=== PATIENT | male | born 1995 | race Two or more races ===

== ENCOUNTER 2024-06-20 17:36 | Emergency (ER) | payer MEDICAID, OTHER ==
[~2024-06-20] VITALS: Ht 177.8 cm; Wt 109.1 kg
--- NOTE | 2024-06-20 18:12 | ED.PDOC ---
Musculoskeletal HPI Comments HPI: Poor Historian. 28-year-old male presents to emergency department for left shoulder pain status post mechanical fall from a standing position. Denies any associated head or neck injury or any other trauma. Denies any loss of consciousness. Past Medical History: Past Surgical History: REVIEW OF SYSTEMS: CONSTITUTIONAL: Denies acute: fever, diaphoresis, chills, generalized weakness. HEAD: Denies acute: headache, photophobia Eyes: Denies acute: Double vision, vision loss, eye pain, eye discharge. EARS: Denies acute: tinnitus, hearing loss, ear discharge, ear pain, THROAT: Denies acute: sore throat, swelling, difficulty swallowing , pain with swallowing, change in voice. NECK: Denies acute: neck pain, neck swelling, stiff neck. HEART: Denies acute : chest pain, palpitations, LUNGS: Denies acute: SOB, wheezing, cough, hemoptysis ABDOMEN: Denies acute: abdominal pain, Nausea, Vomiting, diarrhea, melena , hematemesis, hematochezia SKIN: Denies acute: rash, redness, lesions, itchiness. EXTREMITIES: Denies acute: calf pain, numbness, tingling, weakness, Denies acute: Low back pain. Neuro: Denies acute: focal neurological deficit, motor or sensory focal neurological deficit, tremors, seizure like activity, confusion, dizziness, change in mental status, loss of bowel or bladder function, cauda equina like symptoms. : Denies acute: dysuria, hematuria, flank pain, increase in urinary frequency. PSYCH: Denies acute: hallucination, suicidal ideation, homicidal ideation. PHYSICAL EXAM: General: Ehdp-tf-[id number] acute distress, awake and alert. Head: normocephalic, atraumatic. Neck: supple, trachea is midline, no swelling. Throat: Normal phonation. Eyes:, no erythema, no purulent discharge, no proptosis, no icterus. Heart: regular rate, regular rhythm, no significant murmur appreciated. Lungs: no apparent respiratory distress, Able to speak in full sentences. No wheezing, no rhonchi, no crackles. No stridors Clear to auscultation bilaterally. Abdomen: non tender to palpation, non distended, soft, no guarding, no rebound, + bowel sounds. Neuro: Awake, Alert, oriented to name, self, situation, follows commands GCS=15. Speech is normal. Skin: no petechia, no purpura, no cyanosis, non-pale, not jaundice. Lower extremities: --no - Pitting edema no deformity, no focal swelling, no calf TTP. Makes eye contact. moves all four extremities. Face: no apparent facial droop. Ambulating in the ED independently. Evaluation of the area of pain. Left shoulder appears to be dislocated. Decreased range of motion secondary to pain. Radial pulses palpable. Sensation and motor are present distally. Able to have a good wellness health coach muscle. ED COURSE: Chief Complaint: Upper Extremity Time Seen by MD: 17:48 Reviewed Notes: Nurses Notes, Medications, Allergies Allergies: Coded Allergies: NO KNOWN ALLERGIES (Unverified , 06/20/24) Information Source: Patient Mode of Arrival: Ambulatory Location: Left Was a procedure done? Was a procedure done?: Yes Sedation Sedation?: No Informed consent obtained: Yes Reduction Indication: Dislocation Sedation: Consents obtained Intra-articular anesthetic callum: No Post-reduction x-ray show: Reduction, Good Alignment Differential Diagnosis EXT Differential Diagnosis: Deep Vein Thrombosis, Compartment Syndrome, Fracture, Sprain, Dislocation, Laceration, Gout, Contusion, Strain, Septic, Neurovascular injury, Bursitis X-Ray, Labs, Meds, VS Vital Signs Date Time Temp Pulse Resp B/P (MAP) Pulse Ox O2 Delivery O2 Flow Rate FiO2 06/20/24 18:47 139/97 06/20/24 18:34 85 06/20/24 18:20 98 15 98 Room Air* 0 21 06/20/24 18:17 98.8 98 15 139/97 (111) 98 98.8 06/20/24 17:50 99.8 113 20 144/110 (121) 98 99.8 Lab Test 06/20/24 18:38 Range/Units White Blood Count 10.7 4.4-10.8 10^3/uL Red Blood Count 5.33 4.5-5.90 10^6/uL Hemoglobin 15.9 13.5-17.5 g/dL Hematocrit 46.3 41.0-53.0 % Mean Corpuscular Volume 86.7 80.0-100.0 fL Mean Corpuscular Hemoglobin 29.8 28.0-32.0 pg Mean Corpuscular Hemoglobin Concent 34.4 32.0-36.0 g/dL Red Cell Distribution Width 13.9 11.8-14.3 % Platelet Count 297 140-450 10^3/uL Mean Platelet Volume 8.5 6.9-10.8 fL Neutrophils (%) (Auto) 71.3 37.0-80.0 % Lymphocytes (%) (Auto) 18.4 10.0-50.0 % Monocytes (%) (Auto) 7.5 0.0-12.0 % Eosinophils (%) (Auto) 2.1 0.0-7.0 % Basophils (%) (Auto) 0.7 0.0-2.0 % Neutrophils # (Auto) 7.6 1.6-8.6 10 ^3/uL Lymphocytes # (Auto) 2.0 0.4-5.4 10 ^3/uL Monocytes # (Auto) 0.8 0-1.3 10 ^3/uL Eosinophils # (Auto) 0.2 0-0.8 10 ^3/uL Basophils # (Auto) 0.1 0-0.2 10 ^3/uL Nucleated Red Blood Cells 0.1 % Sodium Level 140 136-145 mmol/L Potassium Level 3.3 L 3.5-5.1 mmol/L Chloride Level 106 98-107 mmol/L Carbon Dioxide Level 21 20-31 mmol/L Anion Gap 13 5-15 Blood Urea Nitrogen 10 9-23 mg/dL Creatinine 1.03 0.700-1.30 mg/dL Glomerular Filtration Rate Calc 101 >90 mL/min BUN/Creatinine Ratio 9.7 L 10.0-20.0 Serum Glucose 122 H 74-106 mg/dL Calcium Level 9.9 8.7-10.4 mg/dL Total Bilirubin 0.4 0.2-1.0 mg/dL Aspartate Amino Transferase (AST) 21 13-40 U/L Alanine Aminotransferase (ALT) 36 7-40 U/L Alkaline Phosphatase 156 H 46-116 U/L Total Protein 7.4 5.7-8.2 g/dL Albumin 5.0 H 3.2-4.8 g/dL Current Medications Medications (Trade) Dose Ordered Sig/Christal Route Start Time Stop Time Status Last Admin Fentanyl Citrate 100 mcg ONCE ONCE IV 06/20/24 18:45 06/20/24 18:46 DC 06/20/24 18:47 [place] [id number] Ph: [phone] DIAGNOSTIC IMAGING Diagnostic Imaging Report : [id number] Signed PATIENT: OSCAR DIAZ ACCT: [id number] UNIT: [id number] : 1995 LOC: ER ROOM / BED: / AGE / SEX: 28 / M ADM STATUS: REG ER SERVICE 1901 ORDERING PHYSICIAN: KOFI BATES DO PROCEDURE(s): LSHD - L SHOULDER 1V XRAY REASON: Post reduction ORDER NUMBER(s): [id number], ACCESSION NUMBER(s): [id number] CLINICAL INDICATION: Post reduction TECHNIQUE: 2 radiographic views of the left shoulder were obtained. Comparison: XY L SHOULDER 1V XRAY on DOS: 06/20/24 FINDINGS/IMPRESSION: Bony alignment is normal there appears to be a fracture of the greater tuberosity of the proximal left humerus which may be secondary to hill-Sachs deformity. The visualized joint space is well maintained. The alignment is anatomical. There is no radiopaque foreign body. ATED BY: OSCAR SANCHEZ Jr., DO DICTATED DATE/TIME: 06/20/241934 SIGNED BY: OSCAR SANCHEZ Jr., SIGNED DATE/TIME: 06/20/241934 CC: [place] [id number] Ph: [phone] DIAGNOSTIC IMAGING Diagnostic Imaging Report : [id number] Signed PATIENT: OSCAR DIAZ ACCT: [id number] UNIT: [id number] : 1995 LOC: ER ROOM / BED: / AGE / SEX: 28 / M ADM STATUS: REG ER SERVICE [id number] ORDERING PHYSICIAN: KOFI BATES DO PROCEDURE(s): LSHD - L SHOULDER 1V XRAY REASON: fall ORDER NUMBER(s): [id number], ACCESSION NUMBER(s): [id number] EXAM: XY L SHOULDER 1V XRAY CLINICAL INDICATION: fall TECHNIQUE: XY L SHOULDER 1V XRAY Comparison: None FINDINGS/IMPRESSION: Anterior/inferior dislocation of the left humeral head. ATED BY: SHANICE KIM MD DICTATED DATE/TIME: 06/20/241833 SIGNED BY: SHANICE KIM MD SIGNED DATE/TIME: 06/20/241833 CC: Time of 1ST Reevaluation: 18:57 (Patient received fentanyl 100 mics IV. Left shoulder dislocation reduction was performed by myself at bedside. Patient tolerated the procedure well. Complications none apparent. Patient was placed in a shoulder sling and postreduction x-ray will be obtained.) Reevaluation 1ST: Resolved Patient Education/Counseling: Diagnosis, Treatment Family Education/Counseling: No Family Present Comments Patient presented with the above HPI.--left shoulder injury----workup was initiated. patient was found with the above mentioned diagnosis. the following medications were ordered: please refer to order lists of meds and tests obtained by myself Dr. Bates. Patient ED course and VS have been stabilized. Patient has been reassessed in the ED and remained in a stable condition. Pertinent incidental findings were discussed with the patient and/or family. Patient/family voices understanding and is agreeable with plan. Patient has been observed in the ED adequate length of time to insure improvement/stability. Escalation of care considered: Consideration of escalation to observation or admission Successful dislocation reduction of the left shoulder was performed. Patient was DISCHARGED home in a stable condition. All the reports of any imaging studies that were ordered by myself were reviewed by myself. Departure 1 Departure Time of Disposition: 18:57 Impression: Primary Impression: Dislocation of left shoulder joint Qualified Codes: S43.005A - Unspecified dislocation of left shoulder joint, initial encounter Additional Impressions: Hill Sachs deformity, left Humeral head fracture Qualified Codes: S42.292A - Other displaced fracture of upper end of left humerus, initial encounter for closed fracture Disposition: 01 HOME / SELF CARE / HOMELESS Condition: Stable Additional Instructions: Additional discharge instructions: You MUST follow-up with your primary care/family doctor in 1 to 2 days. If you are unable to see your primary care/family doctor, please return to our emergency room for re-assessment and re-evaluation in 1 to 2 days. Return to the emergency room here in our facility or to the nearest ER [facility] if your symptoms change or worsen. CONSULTATIONS: you MUST Follow-up for consultation as soon as possible with: orthopedic doctor in 1-2 days. Please call for appointment. You MUST call the consultants office yourself to make an appointment. You may need to arrange that through your insurance and/or your primary/family doctor. If you are unable to see the financial sales consultant in 1 to 2 days, you must return to our emergency room (or any other ER of your choice) for re-assessment and re- evaluation. Adequate fluid hydration. Below is a copy of your radiological report for follow up: [place] [id number] Ph: [phone] DIAGNOSTIC IMAGING Diagnostic Imaging Report : [id number] Signed PATIENT: OSCAR DIAZ ACCT: [id number] UNIT: [id number] : 1995 LOC: ER ROOM / BED: / AGE / SEX: 28 / M ADM STATUS: REG ER SERVICE 47 ORDERING PHYSICIAN: KOFI BATES DO PROCEDURE(s): LSHD - L SHOULDER 1V XRAY REASON: fall ORDER NUMBER(s): [id number], ACCESSION NUMBER(s): [id number] EXAM: XY L SHOULDER 1V XRAY CLINICAL INDICATION: fall TECHNIQUE: XY L SHOULDER 1V XRAY Comparison: None FINDINGS/IMPRESSION: Anterior/inferior dislocation of the left humeral head. ATED BY: SHANICE KIM MD DICTATED DATE/TIME: 06/20/241833 SIGNED BY: SHANICE KIM MD SIGNED DATE/TIME: 06/20/241833 CC: [place] [id number] Ph: [phone] DIAGNOSTIC IMAGING Diagnostic Imaging Report : [id number] Signed PATIENT: OSCAR DIAZ ACCT: [id number] UNIT: [id number] : 1995 LOC: ER ROOM / BED: / AGE / SEX: 28 / M ADM STATUS: REG ER SERVICE 00 ORDERING PHYSICIAN: KOFI BATES DO PROCEDURE(s): LSHD - L SHOULDER 1V XRAY REASON: Post reduction ORDER NUMBER(s): [id number], ACCESSION NUMBER(s): [id number] CLINICAL INDICATION: Post reduction TECHNIQUE: 2 radiographic views of the left shoulder were obtained. Comparison: XY L SHOULDER 1V XRAY on DOS: 06/20/24 FINDINGS/IMPRESSION: Bony alignment is normal there appears to be a fracture of the greater tuberosity of the proximal left humerus which may be secondary to hill-Sachs deformity. The visualized joint space is well maintained. The alignment is anatomical. There is no radiopaque foreign body. ATED BY: OSCAR SANCHEZ Jr., DO DICTATED DATE/TIME: 06/20/241934 SIGNED BY: OSCAR SANCHEZ Jr., SIGNED DATE/TIME: 06/20/241934 CC: Discharged With: Self Critical Care Note Critical Care Time?: Yes (35 min-critical care time only) KOFI BATES DO Jun 20, 2024 18:11
[2024-06-20 18:20] VITALS: PULSE 98; RESP 15; O2SAT 98
--- NOTE | 2024-06-20 18:36 | DVH ---
EXAM: XY L SHOULDER 1V XRAY CLINICAL INDICATION: fall TECHNIQUE: XY L SHOULDER 1V XRAY Comparison: None FINDINGS/IMPRESSION: Anterior/inferior dislocation of the left humeral head.
[2024-06-20] MEDS: fentaNYL CITRATE 100 MCG/2 ML VL IV ONE (18:47)
[2024-06-20 18:59] LABS: Basophils # (auto) 0.1 10 ^3/uL (0-0.2); Basophils % (auto) 0.7 % (0.0-2.0); Eosinophils # (auto) 0.2 10 ^3/uL (0-0.8); Eosinophils % (auto) 2.1 % (0.0-7.0); Hematocrit 46.3 % (41.0-53.0); Hemoglobin 15.9 g/dL (13.5-17.5); Lymphocytes % (auto) 18.4 % (10.0-50.0); Mean Corpuscular Hemoglobin 29.8 pg (28.0-32.0); Mean Corpuscular Hgb Conc. 34.4 g/dL (32.0-36.0); Mean Corpuscular Volume 86.7 fL (80.0-100.0); Monocytes # (auto) 0.8 10 ^3/uL (0-1.3); Monocytes % (auto) 7.5 % (0.0-12.0); Neutrophils # (auto) 7.6 10 ^3/uL (1.6-8.6); Neutrophils % (auto) 71.3 % (37.0-80.0); Nucleated Red Blood Cells % 0.1 %; Platelet Count (auto) 297 10^3/uL (140-450); Red Blood Cells 5.33 10^6/uL (4.5-5.90); Red Cell Distribution Width 13.9 % (11.8-14.3); White Blood Cell 10.7 10^3/uL (4.4-10.8)
[2024-06-20 19:15] LABS: Alanine Aminotransferase 36 U/L (7-40); Anion Gap 13 (5-15); Aspartate Aminotransferase 21 U/L (13-40); BUN/Creatinine Ratio 9.7 (10.0-20.0); Blood Urea Nitrogen 10 mg/dL (9-23); Calcium 9.9 mg/dL (8.7-10.4); Carbon Dioxide 21 mmol/L (20-31); Chloride 106 mmol/L (98-107); Sodium 140 mmol/L (136-145); Total Protein 7.4 g/dL (5.7-8.2)
[2024-06-20 19:16] LABS: Bilirubin, Total 0.4 mg/dL (0.2-1.0)
[2024-06-20 19:35] VITALS: BP 139/97; PULSE 98; RESP 15; TEMP 98.8; O2SAT 98
[2024-06-20 19:35] LABS: Alkaline Phosphatase 156 U/L (46-116); Glucose 122 mg/dL (74-106); Potassium 3.3 mmol/L (3.5-5.1)
--- NOTE | 2024-06-20 19:37 | DVH ---
CLINICAL INDICATION: Post reduction TECHNIQUE: 2 radiographic views of the left shoulder were obtained. Comparison: XY L SHOULDER 1V XRAY on DOS: 06/20/24 FINDINGS/IMPRESSION: Bony alignment is normal there appears to be a fracture of the greater tuberosity of the proximal lef t humerus which may be secondary to hill-Sachs deformity. The visualized joint space is well maintained. The alignment is anatomical. There is no radiopaque foreign body.
[2024-06-20] MEDS: SODIUM CHLORIDE 0.9% 1,000 ML IV ONE (19:59)
== END 2024-06-20 19:41 | disposition home or self-care (01) ==
LOC: ER 17:36
DX: S43.035A Inferior dislocation of left humerus, initial encounter (principal); W19.XXXA Unspecified fall, initial encounter; Y93.89 Activity, other specified; Y92.89 Other specified places as the place of occurrence of the external cause; Y99.8 Other external cause status
CPT/HCPCS: 23650; 36415; 73020; 80053; 85025; 96374; 99284; J3010

== ENCOUNTER 2025-03-06 14:49 | Inpatient (IN) | payer MEDICAID ==
[~2025-03-06] VITALS: Ht 177.8 cm; Wt 106.9 kg
--- NOTE | 2025-03-06 15:10 | ED.PDOC ---
History of Present Illness HPI Comments 29 y/o M, presents to the ED for CC of headache. Patient states, he has been experiencing a pressure like headache with associated high blood pressure x1day. Upon arrival to the ED, patient is hypertensive with a blood pressure of 199/122mmHg. Patient denies nausea, vomiting, dizziness, or blurred vision. Chief Complaint: Headache Time Seen by MD: 15:00 Reviewed Notes: Nurses Notes, Medications, Allergies Allergies: Coded Allergies: NO KNOWN ALLERGIES (Unverified , 06/20/24) Information Source: Patient Mode of Arrival: Ambulatory Severity: Moderate Timing: Days Duration: Since onset Prehospital treatment: None Past Medical History PAST MEDICAL HISTORY: Denies Surgical History: Denies all surgeries Social History Smoker: Non-Smoker Alcohol: Denies ETOH Use Drugs: Denies Drug Use Lives In: Home Constitutional: denies: chills, diaphoresis, fatigue, fever, malaise, sweats, weakness, others EENTM: denies: blurred vision, double vision, ear bleeding, ear discharge, ear drainage, ear pain, ear ringing, eye pain, eye redness, hearing loss, mouth pain, mouth swelling, nasal discharge, nose bleeding, nose congestion, nose pain, photophobia, tearing, throat pain, throat swelling, voice changes, others Respiratory: denies: cough, hemoptysis, orthopnea, SOB at rest, shortness of breath, SOB with excertion, stridor, wheezing, others Cardiovascular: denies: chest pain, dizzy spells, diaphoresis, Dyspnea on exertion, edema, irregular heart beat, left arm pain, lightheadedness, palpitations, PND, syncope, others Gastrointestinal: denies: abdomen distended, abdominal pain, blood streaked bowels, constipated, diarrhea, dysphagia, difficulty swallowing, hematemesis, melena, nausea, poor appetite, poor fluid intake, rectal bleeding, rectal pain, vomiting, others Genitourinary: denies: burning, dysuria, flank pain, frequency, hematuria, incontinence, penile discharge, penile sore, pain, testicle pain, testicle swelling, urgency, others Neurological: reports: headache, numbness (facial); denies: dizziness, fainting, left sided numbness, left sided weakness, paresthesia, pre-existing deficit, right sided numbness, right sided weakness, seizure, speech problems, tingling, tremors, weakness, others Musculoskeletal: denies: back pain, gout, joint pain, joint swelling, muscle pain, muscle stiffness, neck pain, others Integumetry: denies: bruises, change in color, change in hair/nails, dryness, laceration, lesions, lumps, rash, wounds, others Allergic/Immunocompromised: denies: Difficulty Healing, Frequent Infections, Hives, Itching, others Hematologic/Lymphatic: denies: anemia, blood clots, easy bleeding, easy bruising, swollen glands, others Endocrine: denies: excessive hunger, excessive sweating, excessive thirst, excessive urination, flushing, intolerance to cold, intolerance to heat, unexplained weight gain, unexplained weight loss, others Psychiatric: denies: anxiety, bipolar disorder, depression, hopeless, panic disorder, schizophrenia, sleepless, suicidal, others All Other Systems: Reviewed and Negative Physical Exam General Appearance: No Apparent Distress, Normal HEENT: Normal ENT Inspection, Pharynx Normal Neck: Full Range of Motion, Non-Tender, Normal, Normal Inspection Respiratory: Chest Non-Tender, Lungs Clear, No Accessory Muscle Use, No Respiratory Distress, Normal Breath Sounds Cardiovascular: No Edema, No Murmur, No Gallop, Normal Peripheral Pulses, Regular Rate/Rhythm Breast Exam: Deferred Gastrointestinal: No Organomegaly, Non Tender, No Pulsatile Mass, Normal Bowel Sounds, Soft Genitalia: Deferred Pelvic: Deferred Rectal: Deferred Extremities: No calf tenderness, Normal capillary refill, Normal inspection, Normal range of motion, Non-tender, No pedal edema Musculoskeletal : Apperance: Normal Neurologic: Alert, correctional program specialist II-XII nml as Tested, No Motor Deficits, Normal Affect, Normal Mood, No Sensory Deficits Cerebellar Function: Normal Reflexes: Normal Skin: Dry, Normal Color, Warm Lymphatic: No Adenopathy Was a procedure done? Was a procedure done?: No Differential Dx Considerations may include: hypertensive crisis, hypertensive urgency, dehydration, electrolyte imbalance, migraine headache X-Ray, Labs, Meds, VS Vital Signs Date Time Temp Pulse Resp B/P (MAP) Pulse Ox O2 Delivery O2 Flow Rate FiO2 03/06/25 16:01 143/88 03/06/25 15:57 99 Room Air* 0 21 03/06/25 15:56 98.1 75 18 143/97 (112) 98 98.1 03/06/25 14:57 88 03/06/25 14:51 97.8 97 18 199/122 97 97.8 Lab Test 03/06/25 15:47 03/06/25 15:08 03/06/25 14:59 Range/Units Troponin I High Sensitivity < 3 L < 3 L </=54 ng/L White Blood Count 7.1 4.4-10.8 10^3/uL Red Blood Count 5.53 4.5-5.90 10^6/uL Hemoglobin 16.6 13.5-17.5 g/dL Hematocrit 47.3 41.0-53.0 % Mean Corpuscular Volume 85.4 80.0-100.0 fL Mean Corpuscular Hemoglobin 30.0 28.0-32.0 pg Mean Corpuscular Hemoglobin Concent 35.2 32.0-36.0 g/dL Red Cell Distribution Width 14.1 11.8-14.3 % Platelet Count 280 140-450 10^3/uL Mean Platelet Volume 8.4 6.9-10.8 fL Neutrophils (%) (Auto) 63.1 37.0-80.0 % Lymphocytes (%) (Auto) 27.0 10.0-50.0 % Monocytes (%) (Auto) 8.1 0.0-12.0 % Eosinophils (%) (Auto) 1.1 0.0-7.0 % Basophils (%) (Auto) 0.7 0.0-2.0 % Neutrophils # (Auto) 4.5 1.6-8.6 10 ^3/uL Lymphocytes # (Auto) 1.9 0.4-5.4 10 ^3/uL Monocytes # (Auto) 0.6 0-1.3 10 ^3/uL Eosinophils # (Auto) 0.1 0-0.8 10 ^3/uL Basophils # (Auto) 0 0-0.2 10 ^3/uL Nucleated Red Blood Cells 0.3 % Sodium Level 140 136-145 mmol/L Potassium Level 3.7 3.5-5.1 mmol/L Chloride Level 108 H 98-107 mmol/L Carbon Dioxide Level 19 L 20-31 mmol/L Anion Gap 13 5-15 Blood Urea Nitrogen 15 9-23 mg/dL Creatinine 1.14 0.700-1.30 mg/dL Glomerular Filtration Rate Calc 89 >90 mL/min BUN/Creatinine Ratio 13.2 10.0-20.0 Serum Glucose 103 74-106 mg/dL Calcium Level 9.7 8.7-10.4 mg/dL POC Glucose 110 H 70-106 mg/dl Current Medications Medications (Trade) Dose Ordered Sig/Christal Route Start Time Stop Time Status Last Admin Acetaminophen (Tylenol Tablet) 650 mg ONCE ONCE PO 03/06/25 16:00 03/06/25 16:01 DC 03/06/25 16:21 [place] [id number] Ph: [phone] DIAGNOSTIC IMAGING Diagnostic Imaging Report : [id number] Signed PATIENT: OSCAR DIAZT: [id number] UNIT: [id number] : 1995 LOC: ER ROOM / BED: / AGE / SEX: 29 / M ADM STATUS: REG ER SERVICE 54 ORDERING PHYSICIAN: DREW ACOSTA MD PROCEDURE(s): CXRP - CHEST PORTABLE REASON: weakness ORDER NUMBER(s): [id number], ACCESSION NUMBER(s): [id number] EXAM: XY CHEST PORTABLE HISTORY: weakness TECHNIQUE: 1 view of the chest COMPARISON: XY CHEST PORTABLE on DOS: 12/10/24 FINDINGS/IMPRESSION: LUNGS: No pleural effusion, consolidation, or pneumothorax. MEDIASTINUM: Unremarkable. BONES: No acute osseous abnormality. OTHER: None. ATED BY: KEN LUQUE MD DICTATED DATE/TIME: 03/06/251554 SIGNED BY: KEN LUQUE MD SIGNED DATE/TIME: 03/06/251554 CC: [place] [id number] Ph: [phone] DIAGNOSTIC IMAGING Diagnostic Imaging Report : [id number] Signed PATIENT: OSCAR DIAZ: [id number] UNIT: [id number] : 1995 LOC: ER ROOM / BED: / AGE / SEX: 29 / M ADM STATUS: REG ER SERVICE 54 ORDERING PHYSICIAN: DREW ACOSTA MD PROCEDURE(s): HWOCT - HEAD WITHOUT CONTRAST REASON: weakness ORDER NUMBER(s): [id number], ACCESSION NUMBER(s): [id number] EXAM: CT HEAD WITHOUT CONTRAST INDICATION: weakness TECHNIQUE: CT images of the head were obtained without administration of IV contrast. CT scans at this facility use dose modulation, iterative reconstruction, and/or weight based dosing when appropriate to reduce radiation dose to as low as reasonably achievable. COMPARISON: CT BRAIN/HEAD WO on DOS: 03/06/25 FINDINGS: PARENCHYMA: No acute hemorrhage. There is no mass effect, midline shift, or herniation. There is preservation of the chavez white differentiation. VENTRICLES: No hydrocephalus. EXTRA-AXIAL SPACES: No extra-axial fluid collections. OTHER: The bony structures are intact. Visualized portions of the paranasal sinuses and mastoid air cells are clear. IMPRESSION: 1. No CT evidence of an acute intracranial abnormality. ATED BY: KEN LUQUE MD DICTATED DATE/TIME: 03/06/251554 SIGNED BY: KEN LUQUE MD SIGNED DATE/TIME: 03/06/251554 CC: Time of 1ST Reevaluation: 15:30 Reevaluation 1ST: Unchanged Patient Education/Counseling: Diagnosis, Treatment Family Education/Counseling: No Family Present SEPSIS Sepsis Screen Date sepsis recognized/suspect: Mar 06, 2025 Time Sepsis recognized/suspect: 1453 Recent Procedure: No On Antibiotic Therapy: No Respiratory Rate >20: No Heart Rate >90: Yes Temp<36 C (96.8 F) or >38.3 C: No SBP <90 or MAP <65 mmHG: No New Acute Mental Status Change: No Is the patient on CPAP, BIPAP,: No Physician Orders Urinalysis (03/06/25 14:55) Chest Portable (03/06/25 14:55) Head Without Contrast (03/06/25 14:55) Electrocardigram (03/06/25 14:55) Electrocardigram (03/06/25 15:55) Electrocardigram (03/06/25 17:55) Vital Signs Date Time Temp Pulse Resp B/P (MAP) Pulse Ox O2 Delivery O2 Flow Rate FiO2 03/06/25 16:01 143/88 03/06/25 15:57 99 Room Air* 0 21 03/06/25 15:56 98.1 75 18 143/97 (112) 98 98.1 03/06/25 14:57 88 03/06/25 14:51 97.8 97 18 199/122 97 97.8 Laboratory Tests Test 03/06/25 15:08 White Blood Count 7.1 10^3/uL (4.4-10.8) Medications Medications Dose Ordered Sig/Christal Route Start Time Stop Time Status Last Admin Dose Admin Acetaminophen 650 mg ONCE ONCE PO 03/06/25 16:00 03/06/25 16:01 DC 03/06/25 16:21 Departure 1 Departure Time of Disposition: 17:58 (Patient also with facial numbness and tingling concerning for possible TIA versus at suspected) Impression: Primary Impression: Facial numbness Additional Impression: Generalized weakness Disposition: ADMITTED INPATIENT Admit to: Med Surg Condition: Guarded Critical Care Note Critical Care Time?: No Stability Stability form required: No Heart Score Heart Score: Heart Score Response (Comments) Value History N/A 0 EKG N/A 0 Age N/A 0 Risk Factors N/A 0 Troponin N/A 0 Total 0 I personally scribed for DREW ACOSTA MD ([email or web address]) on 03/06/25 at 15:10. Electronically submitted by Soha Lyman ([employer]). I personally scribed for DREW ACOSTA MD ([email or web address]) on 03/06/25 at 16:05. Electronically submitted by Soha Lyman ([employer]). I personally scribed for DREW ACOSTA MD ([email or web address]) on 03/06/25 at 16:06. Electronically submitted by Soha Lyman ([employer]). DREW ACOSTA MD Mar 06, 2025 15:10
[2025-03-06 15:28] LABS: Hematocrit 47.3 % (41.0-53.0); Hemoglobin 16.6 g/dL (13.5-17.5); Mean Corpuscular Hemoglobin 30.0 pg (28.0-32.0); Mean Corpuscular Volume 85.4 fL (80.0-100.0); Nucleated Red Blood Cells % 0.3 %
[2025-03-06 15:32] LABS: Potassium 3.7 mmol/L (3.5-5.1); Sodium 140 mmol/L (136-145)
[2025-03-06 15:33] LABS: Anion Gap 13 (5-15)
[2025-03-06 15:34] LABS: Calcium 9.7 mg/dL (8.7-10.4)
[2025-03-06 15:38] LABS: BUN/Creatinine Ratio 13.2 (10.0-20.0); Blood Urea Nitrogen 15 mg/dL (9-23); Glucose 103 mg/dL (74-106)
[2025-03-06 15:49] LABS: Carbon Dioxide 19 mmol/L (20-31); Chloride 108 mmol/L (98-107)
--- NOTE | 2025-03-06 15:57 | DVH ---
EXAM: XY CHEST PORTABLE HISTORY: weakness TECHNIQUE: 1 view of the chest COMPARISON: XY CHEST PORTABLE on DOS: 12/10/24 FINDINGS/IMPRESSION: LUNGS: No pleural effusion, consolidation, or pneumothorax. MEDIASTINUM: Unremarkable. BONES: No acute osseous abnormality. OTHER: None.
--- NOTE | 2025-03-06 15:58 | DVH ---
EXAM: CT HEAD WITHOUT CONTRAST INDICATION: weakness TECHNIQUE: CT images of the head were obtained without administration of IV contrast. CT scans at this facility use dose modulation, iterative reconstruction, and/or weight based dosing when appropriate to reduce radiation dose to as low as reasonably achievable. COMPARISON: CT BRAIN/HEAD WO on DOS: 03/06/25 FINDINGS: PARENCHYMA: No acute hemorrhage. There is no mass effect, midline shift, or herniation. There is preservation of the chavez white differentiation. VENTRICLES: No hydrocephalus. EXTRA-AXIAL SPACES: No extra-axial fluid collections. OTHER: The bony structures are intact. Visualized portions of the paranasal sinuses and mastoid air cells are clear. IMPRESSION: 1. No CT evidence of an acute intracranial abnormality.
[2025-03-06] MEDS: hydrALAZINE HCL 20 MG/ML VL IV ONE (16:01)
[2025-03-06] MEDS: ACETAMINOPHEN 325 MG TAB PO ONE (16:21)
[2025-03-06] MEDS ORDERED: ACETAMINOPHEN 325 MG TAB PO PRN ×2 (19:45→22:21)
[2025-03-06] MEDS ORDERED: ONDANSETRON HCL 4 MG/2 ML VIAL IV PRN (19:45)
--- NOTE | 2025-03-06 20:14 | DVHHP2 ---
History of Present Illness Reason for Visit: Headache History of Present Illness 29-year-old male presents for evaluation of a headache. Patient reports a one day history of a throbbing headache. On arrival to the emergency department patient's blood pressure was 199/122. Patient was admitted three months ago for chest pain and cardiac workup was initiated. Patient left AMA before being seen by Cardiology or the echocardiogram was performed. He denies any chest pain or shortness for breath at the moment. No other acute complaints reported. Past Medical History Hypertension Past Surgical History Denies Family History Noncontributory Smoke: No ALCOHOL: none Drugs: None Lives: with Family Review of Systems Review of Systems Review of systems are currently negative otherwise addressed in HPI. Allergies: Coded Allergies: NO KNOWN ALLERGIES (Unverified , 06/20/24) Medications Current Medications Medications Dose Ordered Sig/Christal Route Start Time Stop Time Status Last Admin Dose Admin Losartan Potassium 25 mg DAILY PO 03/07/25 10:00 Clonidine HCl 0.1 mg Q6HP PRN PO 03/06/25 19:45 Ondansetron HCl 4 mg Q4HP PRN IV 03/06/25 19:45 Acetaminophen 650 mg Q6HP PRN PO 03/06/25 22:21 Exam Vital Signs Vital Signs Date Time Temp Pulse Resp B/P (MAP) Pulse Ox O2 Delivery O2 Flow Rate FiO2 03/06/25 16:01 143/88 03/06/25 15:57 99 Room Air* 0 21 03/06/25 15:56 98.1 75 18 98.1 Exam Gen: 29-year-old male in mild distress Skin: Warm, dry, normal color and texture, no rash. HEENT: Normocephalic atraumatic, mucous membranes moist and pink. Neck: Cervical and supraclavicular nodes normal without enlargement, trachea is midline, thyroid gland is normal without masses. Pulmonary: Clear to auscultation and percussion bilaterally. Cardiac: Regular rate and rhythm. No murmur Abdomen: Soft, nontender, nondistended, bowel sounds present all 4 quadrants, no guarding, no rigidity, no organomegaly. Extremities: No cyanosis, clubbing, no edema Neuro: Cranial nerves II through XII grossly intact, normal affect and speech, no focal motor deficits. Labs/Xrays ORDERING PHYSICIAN: DREW ACOSTA MD PROCEDURE(s): CXRP - CHEST PORTABLE REASON: weakness ORDER NUMBER(s): [id number], ACCESSION NUMBER(s): [id number] EXAM: XY CHEST PORTABLE HISTORY: weakness TECHNIQUE: 1 view of the chest COMPARISON: XY CHEST PORTABLE on DOS: 12/10/24 FINDINGS/IMPRESSION: LUNGS: No pleural effusion, consolidation, or pneumothorax. MEDIASTINUM: Unremarkable. BONES: No acute osseous abnormality. OTHER: None. RING PHYSICIAN: DREW ACOSTA MD PROCEDURE(s): HWOCT - HEAD WITHOUT CONTRAST REASON: weakness ORDER NUMBER(s): [id number], ACCESSION NUMBER(s): [id number] EXAM: CT HEAD WITHOUT CONTRAST INDICATION: weakness TECHNIQUE: CT images of the head were obtained without administration of IV contrast. CT scans at this facility use dose modulation, iterative reconstruction, and/or weight based dosing when appropriate to reduce radiation dose to as low as reasonably achievable. COMPARISON: CT BRAIN/HEAD WO on DOS: 03/06/25 FINDINGS: PARENCHYMA: No acute hemorrhage. There is no mass effect, midline shift, or herniation. There is preservation of the chavez white differentiation. VENTRICLES: No hydrocephalus. EXTRA-AXIAL SPACES: No extra-axial fluid collections. OTHER: The bony structures are intact. Visualized portions of the paranasal sinuses and mastoid air cells are clear. IMPRESSION: 1. No CT evidence of an acute intracranial abnormality. Labs Test 03/06/25 15:47 03/06/25 15:08 03/06/25 14:59 Range/Units Troponin I High Sensitivity < 3 L </=54 ng/L White Blood Count 7.1 4.4-10.8 10^3/uL Red Blood Count 5.53 4.5-5.90 10^6/uL Hemoglobin 16.6 13.5-17.5 g/dL Hematocrit 47.3 41.0-53.0 % Mean Corpuscular Volume 85.4 80.0-100.0 fL Mean Corpuscular Hemoglobin 30.0 28.0-32.0 pg Mean Corpuscular Hemoglobin Concent 35.2 32.0-36.0 g/dL Red Cell Distribution Width 14.1 11.8-14.3 % Platelet Count 280 140-450 10^3/uL Mean Platelet Volume 8.4 6.9-10.8 fL Neutrophils (%) (Auto) 63.1 37.0-80.0 % Lymphocytes (%) (Auto) 27.0 10.0-50.0 % Monocytes (%) (Auto) 8.1 0.0-12.0 % Eosinophils (%) (Auto) 1.1 0.0-7.0 % Basophils (%) (Auto) 0.7 0.0-2.0 % Neutrophils # (Auto) 4.5 1.6-8.6 10 ^3/uL Lymphocytes # (Auto) 1.9 0.4-5.4 10 ^3/uL Monocytes # (Auto) 0.6 0-1.3 10 ^3/uL Eosinophils # (Auto) 0.1 0-0.8 10 ^3/uL Basophils # (Auto) 0 0-0.2 10 ^3/uL Nucleated Red Blood Cells 0.3 % Sodium Level 140 136-145 mmol/L Potassium Level 3.7 3.5-5.1 mmol/L Chloride Level 108 H 98-107 mmol/L Carbon Dioxide Level 19 L 20-31 mmol/L Anion Gap 13 5-15 Blood Urea Nitrogen 15 9-23 mg/dL Creatinine 1.14 0.700-1.30 mg/dL Glomerular Filtration Rate Calc 89 >90 mL/min BUN/Creatinine Ratio 13.2 10.0-20.0 Serum Glucose 103 74-106 mg/dL Calcium Level 9.7 8.7-10.4 mg/dL POC Glucose 110 H 70-106 mg/dl SEPSIS Sepsis Screen Date sepsis recognized/suspect: Mar 06, 2025 Time Sepsis recognized/suspect: 1453 Recent Procedure: No On Antibiotic Therapy: No Respiratory Rate >20: No Heart Rate >90: Yes Temp<36 C (96.8 F) or >38.3 C: No SBP <90 or MAP <65 mmHG: No New Acute Mental Status Change: No Is the patient on CPAP, BIPAP,: No Physician Orders Urinalysis (03/06/25 14:55) Chest Portable (03/06/25 14:55) Head Without Contrast (03/06/25 14:55) Electrocardigram (03/06/25 14:55) Electrocardigram (03/06/25 15:55) Electrocardigram (03/06/25 17:55) Thyroid Stimulating Hormone (03/06/25 19:33) Losartan Tablet (Cozaar Tablet) (03/07/25 10:00) Clonidine Hcl Tablet (Catapres Tablet) (03/06/25 19:45) Admit (03/06/25 19:33) Ondansetron Hcl (Zofran) (03/06/25 19:45) Echo 2d Mode Cardiac Dop (03/06/25 19:33) Condition: Stable (03/06/25 19:33) Bedrest With Bathroom Privileg (03/06/25 19:33) Acetaminophen Tablet (Tylenol Tablet) (03/06/25 22:21) Renal Artery Comp (03/07/25 08:00) Vital Signs Date Time Temp Pulse Resp B/P (MAP) Pulse Ox O2 Delivery O2 Flow Rate FiO2 03/06/25 16:01 143/88 03/06/25 15:57 99 Room Air* 0 21 03/06/25 15:56 98.1 75 18 143/97 (112) 98 98.1 03/06/25 14:57 88 03/06/25 14:51 97.8 97 18 199/122 97 97.8 Laboratory Tests Test 03/06/25 15:08 White Blood Count 7.1 10^3/uL (4.4-10.8) Medications Medications Dose Ordered Sig/Christal Route Start Time Stop Time Status Last Admin Dose Admin Acetaminophen 650 mg ONCE ONCE PO 03/06/25 16:00 03/06/25 16:01 DC 03/06/25 16:21 650 MG Assessment/Plan Assessment/Plan Assessment Hypertensive urgency Anxiety Plan Admit the patient to Med surge to the hospitalist Start losartan Echocardiogram pending As needed antihypertensives Continue treatment per orders. Plan discussed with: Patient My Orders Orders - YOGESH HOBSON Procedure Category Date Status Time Thyroid Stimulating LAB 03/06/25 In Process Hormone 19:33 Losartan Tablet PHA 03/07/25 In Process (Cozaar Tablet) 10:00 Clonidine Hcl Tablet PHA 03/06/25 In Process (Catapres Tablet) 19:45 Admit ADMIT 03/06/25 Transmitted 19:33 Ondansetron Hcl PHA 03/06/25 In Process (Zofran) 19:45 Echo 2d Mode Cardiac US 03/06/25 Logged DOP 19:33 Condition: Stable ANTHONY 03/06/25 In Process 19:33 Bedrest With Bathroom ANTHONY 03/06/25 In Process Privileg 19:33 Acetaminophen Tablet PHA 03/06/25 In Process (Tylenol Tablet) 22:21 Renal Artery Comp US 03/07/25 Logged 08:00 Date of Service: Mar 06, 2025 Billing Provider: YOGESH HOBSON Common Visit Codes: [id number] INP/OBS CARE (MOD) YOGESH HOBSON Mar 06, 2025 20:14
[2025-03-06] MEDS: LOSARTAN POTASSIUM 25 MG TAB PO ONE (22:12)
[2025-03-06 22:20] LABS: Urine Protein, UAD 1+ (Negative)
[2025-03-06 23:00] VITALS: BP 135/79; PULSE 60; RESP 20; TEMP 97.8; O2SAT 99
[2025-03-06 23:59] VITALS: PULSE 75; RESP 18; O2SAT 98
[2025-03-07 05:00] VITALS: BP 127/71; PULSE 69; RESP 16; TEMP 97.5; O2SAT 97
[2025-03-07 09:00] VITALS: BP 148/91; PULSE 79; RESP 18; TEMP 98.3; O2SAT 95
--- NOTE | 2025-03-07 10:15 | ECG ---
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
--- NOTE | 2025-03-07 11:43 | DVH ---
INDICATION: Hypertension TECHNIQUE: Multiple real-time sonographic images of the kidneys and bladder were obtained. Duplex Doppler evaluation including color Doppler and spectral/pulsed waveform analysis of the bilateral renal arteries was performed. COMPARISON: None FINDINGS: The right kidney measures 11.5 cm in length. The right renal echogenicity, contour and cortical thickness are within normal limits. No hydronephrosis or large masses/calculi are seen. The left kidney measures 10.0 cm in length. The left renal echogenicity, contour, and cortical thickness are within normal limits. No hydronephrosis or large masses/calculi are seen. Left upper pole cyst measures 1.0 cm. Aorta peak systolic velocity, 227 cm/s Right renal artery peak systolic velocity, 100 cm/s (< 180 cm/s = normal). Left renal artery peak systolic velocity 74 cm/s (< 180 cm/s = normal). Right RAR : 0.4 (< 3.5, normal) Left RAR 0.3 (< 3.5, normal) Right RI: 0.6 (< 0.75, normal) Left RI: 0.6 (< 0.75, normal) IMPRESSION: No findings to suggest renal artery stenosis. *Mirta Antonio Techniques in Noninvasive Vascular Diagnosis 2002
[2025-03-07] MEDS: LOSARTAN POTASSIUM 25 MG TAB PO SCH (12:08)
[2025-03-07] MEDS: ALPRAZolam 0.5 MG TAB PO PRN (12:48)
[2025-03-07 13:08] VITALS: BP 157/105; PULSE 82; RESP 20; TEMP 98.2; O2SAT 92
[2025-03-07 15:23] VITALS: BP 151/99; PULSE 72; RESP 18; TEMP 98.1; O2SAT 98
--- NOTE | 2025-03-07 15:39 | DVHPN2 ---
Subjective He is having some anxiety related to chest pressure Reviewed: H&P Changes from previous H/P or p: No Changes Objective Vitals Vital Signs Date Time Temp Pulse Resp B/P (MAP) Pulse Ox O2 Delivery O2 Flow Rate FiO2 03/07/25 13:08 98.2 82 20 157/105 (122) 92 98.2 03/07/25 08:00 Room Air* 0 21 General Appearance: Alert, Oriented X3 HEENT: Atraumatic Lungs: Clear to auscultation Cardiovascular: Regular rate, Normal S1, Normal S2 Abdomen: Normal bowel sounds Medications Current Medications Medications Dose Ordered Sig/Christal Route Start Time Stop Time Status Last Admin Dose Admin Losartan Potassium 25 mg DAILY PO 03/07/25 10:00 Clonidine HCl 0.1 mg Q6HP PRN PO 03/06/25 19:45 Ondansetron HCl 4 mg Q4HP PRN IV 03/06/25 19:45 Acetaminophen 650 mg Q6HP PRN PO 03/06/25 22:21 Fluoxetine HCl 10 mg DAILY PO 03/07/25 12:00 Alprazolam 1 mg DAILY PRN PO 03/07/25 12:00 03/07/25 12:48 1 MG Laboratory Results Laboratory Tests 03/06/25 15:08 Urinalysis Test 03/06/25 21:31 Urine Color Yellow (Yellow) Urine Clarity Clear (Clear) Urine pH 6.0 (5.0-9.0) Urine Specific [place] 1.036 (1.001-1.035) Urine Protein 1+ (Negative) H Urine Ketones Trace (Negative) Urine Blood Negative /uL (Negative) Urine Nitrite Negative (Negative) Urine Bilirubin Negative (Negative) Urine Urobilinogen Normal mg/dL (Negative) Urine Leukocyte Esterase Negative /uL (Negative) Urine RBC 1 /hpf (0 - 3) Urine Microscopic WBC 3 /HPF (0-3) Urine Squamous Epithelial Cells Few /hpf (<5) Urine Bacteria None seen /hpf (None Seen) Urine Mucus Few (None Seen) Urine Glucose Normal mg/dL (Normal) Assessment/Plan Assessment/Plan Hypertensive urgency Anxiety Pending echo cardiology consult anxiety medications Plan discussed with: Patient My Orders Orders - MITZI AQUINO MD Procedure Category Date Status Time Cardiac DIET 03/07/25 Transmitted Diet-2gna,Lofat,Lochol Lunch Fluoxetine Capsule PHA 03/07/25 In Process (Prozac Capsule) 12:00 Alprazolam Tablet PHA 03/07/25 In Process (Xanax Tablet) 12:00 Drug Screen LAB 03/07/25 Logged 15:12 * Bag Filler Machine Operator CONS 03/07/25 Transmitted Consult Date of Service: Mar 07, 2025 Billing Provider: MITZI AQUINO MD Common Visit Codes: [id number] INP/OBS CARE(HIGH) MITZI AQUINO MD Mar 07, 2025 15:39
[2025-03-07 17:13] VITALS: BP 154/88; PULSE 71; RESP 18; TEMP 98.3; O2SAT 95
== END 2025-03-07 19:45 | disposition left against medical advice (07) | DRG 199 ==
LOC: ER 14:49 → OVERFLOW 19:33 → WEST WING 03-07 15:23
PROVIDERS: ADMIT Hospitalist; ATTEND Hospitalist
DX: I16.0 Hypertensive urgency (principal); F41.9 Anxiety disorder, unspecified; I10 Essential (primary) hypertension; Z53.29 Procedure and treatment not carried out because of patient's decision for other reasons
CPT/HCPCS: 36415; 70450; 71045; 80048; 81001; 82962; 84443; 84484; 85025; 93005; 93975; G0378